=== PATIENT | female | born 1970 | race Two or more races ===

== ENCOUNTER 2017-07-21 10:15 | Emergency (ER) | payer OTHER ==
[~2017-07-21] VITALS: Ht 167.6 cm; Wt 69.4 kg
== END 2017-07-21 12:30 | disposition home or self-care (01) ==
LOC: CED 10:15 → CFTX 10:15 → CED 11:34
DX: S70.11XA Contusion of right thigh, initial encounter (principal); E11.9 Type 2 diabetes mellitus without complications; J45.909 Unspecified asthma, uncomplicated; W55.12XA Struck by horse, initial encounter; Y92.69 Other specified industrial and construction area as the place of occurrence of the external cause; Y99.0 Civilian activity done for income or pay; Z23 Encounter for immunization
CPT/HCPCS: 90471; 90715; 99283